=== PATIENT | female | born 1950 | race Caucasian/White ===

== ENCOUNTER 2020-08-29 03:43 | Emergency (ER) | payer MEDICARE, MEDICAID, SELFPAY ==
--- NOTE | ~2020-08-29 | XR_ITS ---
EXAMINATION: XR chest 1V portable DATE: 08/29/2020 04:15 INDICATION: Shortness of breath. TECHNIQUE: A single frontal view of the chest was obtained. COMPARISON: Chest 2 views 06/30/2018 FINDINGS: The chest demonstrates clear lungs without pneumonia, pleural effusion, or pneumothorax. Th e heart size is normal. IMPRESSION: 1. No acute cardiopulmonary disease. Reviewed, dictated and finalized at location A.
[2020-08-29 03:42] VITALS: BP 153/81; PULSE 111; RESP 26; TEMP 36.5; O2SAT 95
--- NOTE | 2020-08-29 03:46 | ECG_ITS ---
Measurements Intervals Welches Rate: 108 P: 54 WA: 165 QRS: -17 QRSD: 93 T: 66 QT: 330 QTc: 444 Interpretive Statements SINUS TACHYCARDIA VENTRICULAR PREMATURE COMPLEX INCOMPLETE RIGHT BUNDLE BRANCH BLOCK BASELINE ARTIFACT- I, II, III, AVR, AVL, AVF, V1-V6 ABNORMAL ECG Electronically Signed On 09-01-2020 15:43:09 CDT by Nguyễn Villar D.O.
[2020-08-29 04:19] LABS: Basophils Percent Auto 0.2 % (0.2-1.2); Eosinophils Percent Auto 0.1 % (0-4.4); Hemoglobin 12.8 g/dL (12.0-15.0); Immature Granulocyte Absolute 0.04 K/mm3 (0.00-0.031); Immature Granulocyte Percent A 0.3 % (0-0.5); Lymphocytes Absolute Auto 0.54 K/mm3 (0.9-3.2); Lymphocytes Percent Auto 4.7 % (18.3-44.2); Mean Corpuscular HGB Conc 33.7 g/dl (32-36); Mean Corpuscular Hemoglobin 29.9 pg (26-34); Mean Corpuscular Volume 88.8 fl (80-100); Mean Platelet Volume 10.9 fl (7.4-10.4); Monocytes Absolute Auto 0.7 K/mm3 (0.1-0.6); Monocytes Percent Auto 6.2 % (2.6-8.5); Neutrophils Absolute Auto 10.3 K/mm3 (1.3-6.7); Neutrophils Percent Auto 88.5 % (45.5-73.1); Platelet Count Result 242 k/mm3 (150-375); Red Blood Count 4.28 M/mm3 (4.2-5.4); Red Cell Distribution Width 12.5 % (11.5-14.5); White Blood Count 11.6 K/mm3 (4.5-10.0)
[2020-08-29 04:28] LABS: Anion Gap 7 mmol/L (8-16); Blood Urea Nitrogen 22 mg/dL (7-17); Calcium 9.4 mg/dL (8.4-10.2); Carbon Dioxide 26 mmol/L (22-30); Chloride 109 mmol/L (98-107); Estimated CRCL calculation 67 ml/min; Estimated Glomerular Filt Rate > 60; Glucose 112 mg/dL (65-105); Potassium 3.5 mmol/L (3.4-5.0); Sodium 142 mmol/L (137-145)
--- NOTE | 2020-08-29 04:30 | ED.GENADULT ---
HPI - General Adult General Chief complaint: Extremity Problem,Nontraumatic Stated complaint: bilateral leg swelling History of Present Illness HPI narrative: Patient is a 69-year-old female who presents ER with weakness and increased difficulty with transfers. Patient is wheelchair-bound due to her MS. Patient has massive lower extremity edema that she reports is worsening. Patient reports that she has been prescribed Lasix in the past but does not take it due to concern that it may injure her kidneys. She is not having chest pain or chest pressure. Denies shortness of breath this time. Has no runny nose/sore throat/productive cough. She also does not like to take Lasix due to chronic incontinence issues and the fact that she will urinate herself. Related Data Home Medications Medication Instructions Recorded Confirmed aspirin [Adult Aspirin] 81 mg PO DAILY 08/29/20 atorvastatin 20 mg PO DAILY 08/29/20 baclofen 10 mg PO BID 08/29/20 docusate sodium 100 mg PO BID 08/29/20 duloxetine 20 mg PO DAILY 08/29/20 duloxetine 60 mg PO DAILY 08/29/20 furosemide 20 mg PO DAILY 08/29/20 hydrochlorothiazide 25 mg PO DAILY 08/29/20 hydroxyzine HCl 25 mg PO TID PRN 08/29/20 lisinopril 10 mg PO DAILY 08/29/20 mirabegron [Myrbetriq] 50 mg PO DAILY 08/29/20 solifenacin [Vesicare] 5 mg PO DAILY 08/29/20 Allergies Allergy/AdvReac Type Severity Reaction Status Date / Time No Known Drug Allergies Allergy Unknown Unverified 05/13/19 08:03 Review of Systems Review of Systems: All systems reviewed & are unremarkable except as noted in HPI and below Constitutional: Constitutional: Denies chills, Denies fever(s) and Denies weakness ENT: Denies nasal congestion and Denies sore throat Cardiovascular: Cardiovascular: Denies chest pain, Denies rapid heart rate and Denies radiating jaw, neck or arm pain Respiratory: Respiratory: Denies cough and Denies dyspnea Musculoskeletal: Musculoskeletal: Denies joint swelling and Denies muscle cramps Comments: Lower extremity edema PMFSH Past Medical History Medical History (Updated 08/29/20 @ 05:41 by Javi Paulino MD) Depression History of seizures Hypertension Lymphedema Multiple sclerosis Pancreatitis Surgical History Surgical History (Updated 08/29/20 @ 04:33 by Javi Paulino MD) History of cholecystectomy Family History Family History (Updated 11/26/13 @ 07:13 by DOCTOR UNKNOWN) Sibling Cerebrovascular accident Social History Social History (Updated 08/29/20 @ 04:33 by Javi Paulino MD) Social History: History of tobacco abuse Alcohol intake: never Exam Narrative: Exam Narrative: GENERAL: Well-appearing, well-nourished, and in no acute distress. HEAD: Normocephalic, atraumatic. CHEST: Clear to auscultation. No respiratory distress. HEART: Tachycardic and regular. Normal radial pulses.. ABDOMEN: Soft, nontender, nondistended. EXTREMITIES: Normal range of motion. 4+ edema of lower extremities. SKIN: Warm, dry, no rash. Chronic venous stasis changes in lower extremities. NEURO: Alert and oriented x3. PSYCH: Normal mood and affect. Course Course Emergency Course: Encourage patient to start her home Lasix and we will provide her with some potassium supplementation. Also discussed that she could be referred to [facility] for lymphedema wraps. Unlikely were edema related improve due to her lack of mobility. Patient may be trending towards prison placement if she cannot perform transfers later on down the road. Vital Signs Vital signs: Vital Signs Temperature 97.7 F 08/29/20 03:42 Pulse Rate 111 H 08/29/20 03:42 Respiratory Rate 26 H 08/29/20 03:42 Blood Pressure 153/81 H 08/29/20 03:42 Pulse Oximetry 95 08/29/20 03:42 Temperature 97.7 F 08/29/20 03:42 Pulse Rate 111 H 08/29/20 03:42 Respiratory Rate 26 H 08/29/20 03:42 Blood Pressure 153/81 H 08/29/20 03:42 Pulse Oximetry 95 08/29/20 03:42
[2020-08-29 04:37] LABS: NT Pro B Type Natriuretic Pept 168 pg/mL (5-100)
[2020-08-29 06:00] VITALS: BP 149/76; PULSE 102; RESP 23; O2SAT 95
--- NOTE | 2020-08-29 06:20 | PC.NURSE ---
Daughter at bedside-says that her is coming to machine pecan picker patient and return her to [facility]. Patient reports that she has had a wet pull up on for awhile - when questioned why she never used call kerr to be changed she stated I'd just be wet again in a short amount of time even if you changed me . Patient ready to be changed now because she is to be discharged home
== END 2020-08-29 07:00 | disposition home or self-care (01) ==
PROVIDERS: Emergency Provider Emergency Medicine; PCP Nurse Practitioner Family
DX: R60.0 Localized edema (principal); G35 Multiple sclerosis; Z99.3 Dependence on wheelchair; Z79.82 Long term (current) use of aspirin; I10 Essential (primary) hypertension; F32.9 Major depressive disorder, single episode, unspecified; I89.0 Lymphedema, not elsewhere classified; Z87.891 Personal history of nicotine dependence; Z91.14 Patient's other noncompliance with medication regimen
CPT/HCPCS: 36415; 71045; 80048; 83880; 85025; 93005; 99283

== ENCOUNTER 2020-09-13 09:17 | Outpatient (CLI) | payer MEDICARE, MEDICAID, SELFPAY ==
[2020-09-13 09:50] LABS: Basophils Absolute Auto 0.1 K/mm3 (0.0-0.1); Basophils Percent Auto 0.9 % (0.2-1.2); Eosinophils Absolute Auto 0.1 K/mm3 (0-0.3); Eosinophils Percent Auto 1.7 % (0-4.4); Hematocrit 42.5 % (37.0-47.0); Hemoglobin 13.8 g/dL (12.0-15.0); Immature Granulocyte Absolute 0.02 K/mm3 (0.00-0.031); Immature Granulocyte Percent A 0.4 % (0-0.5); Lymphocytes Percent Auto 20.6 % (18.3-44.2); Mean Corpuscular HGB Conc 32.5 g/dl (32-36); Mean Corpuscular Hemoglobin 29.7 pg (26-34); Mean Corpuscular Volume 91.4 fl (80-100); Mean Platelet Volume 11.4 fl (7.4-10.4); Monocytes Absolute Auto 0.4 K/mm3 (0.1-0.6); Monocytes Percent Auto 6.9 % (2.6-8.5); Neutrophils Absolute Auto 3.7 K/mm3 (1.3-6.7); Neutrophils Percent Auto 69.5 % (45.5-73.1); Platelet Count Result 263 k/mm3 (150-375); Red Blood Count 4.65 M/mm3 (4.2-5.4); Red Cell Distribution Width 12.6 % (11.5-14.5); White Blood Count 5.3 K/mm3 (4.5-10.0)
[2020-09-13 10:01] LABS: Alanine Aminotransferase 14 U/L (4-35); Albumin Level 4.6 g/dL (3.5-5.1); Alkaline Phosphatase 99 U/L (38-126); Anion Gap 8 mmol/L (8-16); Aspartate Amino Transferase 21 U/L (14-36); Bilirubin,Total 0.7 mg/dL (0.2-1.3); Blood Urea Nitrogen 35 mg/dL (7-17); Carbon Dioxide 35 mmol/L (22-30); Chloride 101 mmol/L (98-107); Estimated Glomerular Filt Rate 49; Glucose 105 mg/dL (65-105); Potassium 3.8 mmol/L (3.4-5.0); Sodium 144 mmol/L (137-145)
== END 2020-09-13 09:18 | disposition home or self-care (01) ==
PROVIDERS: PCP Nurse Practitioner Family; Visit Provider Nurse Practitioner Family
DX: R60.9 Edema, unspecified (principal); Z51.81 Encounter for therapeutic drug level monitoring; Z79.899 Other long term (current) drug therapy
CPT/HCPCS: 36415; 80053; 85025

== ENCOUNTER 2020-11-17 11:57 | Outpatient (CLI) | payer MEDICARE, MEDICAID, SELFPAY ==
[2020-11-17 12:41] LABS: Hematocrit 40.1 % (37.0-47.0); Hemoglobin 12.7 g/dL (12.0-15.0); Mean Corpuscular HGB Conc 31.7 g/dl (32-36); Mean Corpuscular Hemoglobin 29.3 pg (26-34); Mean Corpuscular Volume 92.4 fl (80-100); Mean Platelet Volume 10.8 fl (7.4-10.4); Platelet Count Result 240 k/mm3 (150-375); Red Blood Count 4.34 M/mm3 (4.2-5.4); Red Cell Distribution Width 13.6 % (11.5-14.5); White Blood Count 5.3 K/mm3 (4.5-10.0)
[2020-11-17 13:00] LABS: Albumin Level 4.2 g/dL (3.5-5.1); Anion Gap 5 mmol/L (8-16); Blood Urea Nitrogen 17 mg/dL (7-17); Calcium 8.7 mg/dL (8.4-10.2); Carbon Dioxide 30 mmol/L (22-30); Chloride 105 mmol/L (98-107); Estimated Glomerular Filt Rate > 60; Glucose 93 mg/dL (65-110); Phosphorus 2.9 mg/dL (2.5-4.5); Potassium 3.5 mmol/L (3.4-5.0); Sodium 140 mmol/L (137-145)
[2020-11-17 13:07] LABS: Complement C3 108 mg/dL (88-165)
[2020-11-17 13:49] LABS: Erythrocyte Sedimentation Rate 46 mm/hr (0-20)
[2020-11-20 06:12] LABS: Kappa\\Lambda Light Chains 1.56 (0.26-1.65); Lambda Light Chain 20.3 mg/L (5.7-26.3)
[2020-11-23 14:31] LABS: Complement Total CH50 >60 U/mL (31-60)
== END 2020-11-17 11:58 | disposition home or self-care (01) ==
PROVIDERS: PCP Nurse Practitioner Family; Visit Provider Internal Medicine Nephrology
DX: R94.4 Abnormal results of kidney function studies (principal)
CPT/HCPCS: 36415; 80069; 83883; 85027; 85652; 86038; 86039; 86160; 86162; 86334

== ENCOUNTER 2020-11-23 12:33 | Outpatient (NON) | payer MEDICARE, MEDICAID, SELFPAY ==
[2020-11-23 13:12] LABS: Add Urine Microscopic? YES; Appearance Urine Cloudy (Clear); Bilirubin Urine Negative (Negative); Blood Urine Negative (Negative); Color Urine Yellow (Yellow); Glucose Urine UA Negative (Negative); Ketones Urine Negative (Negative); Leukocyte Esterase Ur 1+ LEU/UL (NEGATIVE); Nitrate Urine Negative (Negative); Protein Urine Negative (Negative); RBC Urine 0-2 /hpf (0-2); Specific Grav Ur 1.018 (1.001-1.035); WBC Urine 0-3 /hpf (0-3)
[2020-11-23 13:32] LABS: Creatinine Urine 122.8 mg/dL; Total Protein Urine Random 9 mg/dL; Ur Ttl Prot Creatinine Ratio 0.07 mg/mg (0-0.20)
[2020-11-23 13:36] LABS: Sodium Urine Random 144 meq/L
== END 2020-11-23 12:34 | disposition home or self-care (01) ==
LOC: ANHLAB 12:34
PROVIDERS: PCP Nurse Practitioner Family; Visit Provider Internal Medicine Nephrology
DX: R94.4 Abnormal results of kidney function studies (principal)
CPT/HCPCS: 81001; 82570; 84156; 84300; 86335

== ENCOUNTER 2020-12-06 10:30 | Outpatient (CLI) | payer MEDICARE, MEDICAID, SELFPAY ==
--- NOTE | ~2020-12-06 | US_ITS ---
EXAMINATION: US renal BI EXAM DATE: 12/06/2020 11:06 INDICATION: nonspecific abn results of function study of kidney TECHNIQUE: Multiple grayscale and Doppler images of the kidneys were obtained (by a technologist who performed the scan) and subsequently reviewed. There is no prior study for comparison. FINDINGS: Right kidney: There is normal contour and echogenicity. It measures 10.5 x 4.6 x 5.0 centimeters. T here are no focal renal lesions identified. There is no hydronephrosis. Left kidney: There is normal contour and echogenicity. It measures 9.9 x 5.4 x 4.7 centimeters. The re are no focal renal lesions identified. There is no hydronephrosis. Bladder unremarkable. IMPRESSION: 1. Sonographically unremarkable kidneys. Reviewed, dictated and finalized at location A.
== END 2020-12-06 10:31 | disposition home or self-care (01) ==
PROVIDERS: PCP Nurse Practitioner Family; Visit Provider Internal Medicine Nephrology
DX: R94.4 Abnormal results of kidney function studies (principal)
CPT/HCPCS: 76775

== ENCOUNTER 2021-01-03 08:57 | Outpatient (CLI) | payer MEDICARE, MEDICAID, SELFPAY ==
[2021-01-03 09:55] LABS: Rheumatoid Factor < 8.6 IU/ML (<12)
[2021-01-05 22:22] LABS: ANCA Screen Negative (Negative)
[2021-01-06 23:04] LABS: SM Antibody <1.0; SM/RNP Antibody <1.0
[2021-01-08 20:55] LABS: Anti Glomerular Basement Memb <1.0 AI (<1.0)
[2021-01-10 12:25] LABS: Cryoglobulin, QL Negative (Negative)
[2021-02-15 13:19] LABS: SS-A <1.0
[2021-02-15 13:20] LABS: SS-B <1.0
== END 2021-01-03 08:58 | disposition home or self-care (01) ==
PROVIDERS: PCP Nurse Practitioner Family; Visit Provider Internal Medicine Nephrology
DX: R94.4 Abnormal results of kidney function studies (principal); R76.0 Raised antibody titer
CPT/HCPCS: 36415; 82595; 83520; 86021; 86038; 86039; 86225; 86235; 86430

== ENCOUNTER 2021-04-04 14:32 | Outpatient (CLI) | payer MEDICARE, MEDICAID, SELFPAY ==
--- NOTE | ~2021-04-04 | CT_ITS ---
EXAMINATION: CT lung screening DATE: 04/04/2021 15:05 INDICATION: NICOTINE DEPENDENCE TECHNIQUE: Computed tomography (CT) of the chest was performed without intravenous contrast. Addition al 3D reconstructions utilizing coronal maximum intensity projection (MIP) were performed. Automated exposure control and iterative reconstruction technique were employed. The dose-length product was 18 6.80 mGy-cm. COMPARISON: None FINDINGS: Mild biapical pleural-parenchymal scarring. Mild linear discoid atelectasis/scarring at the bilateral lung bases. Several scattered 3 mm or smaller nodules at the left lower and bilateral upper lobes. T he larger pulmonary nodules, pulmonary edema or pleural effusion. Heart size is normal. Atherosclerot ic coronary artery calcific lesion. No pericardial effusion. Thoracic aorta is normal in caliber. No pathologically enlarged thoracic lymphadenopathy. Chronic compression fractures with mild anterior we dging at T6-T8 and chronic mild superior endplate compression fractures at T10 and L1. IMPRESSION: 1. Lung-RADS category 2: Benign appearance or behavior. Continue annual screening with noncontrast lo w-dose chest CT in 12 months. Reviewed, dictated and finalized at location B. EN PRINTER HELPER IMPRESSION: 1. Lung-RADS category 2: Benign appearance or behavior. Continue annual screeni ng with noncontrast low-dose chest CT in 12 months.
== END 2021-04-04 14:33 | disposition home or self-care (01) ==
LOC: ANHIMG 14:36
PROVIDERS: PCP Nurse Practitioner Family; Visit Provider Nurse Practitioner Family
DX: Z12.2 Encounter for screening for malignant neoplasm of respiratory organs (principal); F17.210 Nicotine dependence, cigarettes, uncomplicated
CPT/HCPCS: 71271

== ENCOUNTER 2021-05-16 12:05 | Outpatient (CLI) | payer OTHER, SELFPAY ==
--- NOTE | ~2021-05-16 | XR_ITS ---
XR knee RT 2V DATE: 05/16/2021 13:44 INDICATION: Acute onset of right knee pain TECHNIQUE: AP and crosstable lateral views COMPARISON: None FINDINGS: Diffuse osteopenia. No fracture or dislocation, periosteal reaction or bone destruction or significant joint space narrowing, radiopaque intra-articular loose body or chondrocalcinosis. IMPRESSION: Osteopenia Reviewed, dictated and finalized at location B. ST SUPERVISOR IMPRESSION: Osteopenia
[2021-05-16 14:08] LABS: CRP < 0.5 mg/dL (<1.0); Creatine Kinase 44 U/L (30-135); Magnesium 2.3 mg/dL (1.6-2.3); Uric Acid 9.5 mg/dL (2.5-7.5)
[2021-05-16 14:30] LABS: Erythrocyte Sedimentation Rate 35 mm/hr (0-20)
[2021-05-16 14:36] LABS: Thyroid Stimulating Hormone 0.678 uIU/mL (0.465-4.680)
[2021-05-16 14:45] LABS: Free T4 Free Thyroxine 1.25 ng/mL (0.78-2.19); Vitamin D 25 Hydroxy 27.6 ng/mL
[2021-05-16 15:00] LABS: Hepatitis B Surface Antigen Negative (Negative)
[2021-05-16 15:02] LABS: Hepatitis B Core IgM Result Negative (Negative)
[2021-05-16 15:15] LABS: Folic Acid 13.1 ng/mL (2.76->20); Hepatitis B Surface Anti Res Negative; Hepatitis C Virus Antibody Negative (Negative)
[2021-05-16 19:53] LABS: Hemoglobin A1C 5.3 % (<5.7)
[2021-05-18 14:38] LABS: NIL 0.01 IU/mL; Quantiferon TB Plus, 1T NEGATIVE (NEGATIVE)
[2021-05-18 14:39] LABS: Rheumatoid Factor < 8.6 IU/ML (<12)
[2021-05-18 15:26] LABS: Hepatitis C RNA, Quant PCR <15 IU/mL
[2021-05-18 17:00] LABS: Albumin 4.1 g/dL (3.8-4.8); Alpha 1 Globulin 0.4 g/dL (0.2-0.3); Alpha 2 Globulin 0.9 g/dL (0.5-0.9); Beta 1 Globulin 0.5 g/dL (0.4-0.6); Gamma Globulin 1.2 g/dL (0.8-1.7); Protein, Total 7.4 g/dL (6.1-8.1)
[2021-05-18 18:10] LABS: Hepatitis B DNA PCR <1.00 Log IU/mL; Hepatitis B DNA PCR <10 IU/mL
[2021-05-19 10:09] LABS: Vitamin B1 11 nmol/L (8-30)
[2021-05-21 10:55] LABS: Vitamin B6 <2.0 ng/mL (2.1-21.7)
== END 2021-05-16 12:06 | disposition home or self-care (01) ==
PROVIDERS: PCP Nurse Practitioner Family; Visit Provider Internal Medicine Rheumatology
DX: M85.861 Other specified disorders of bone density and structure, right lower leg (principal); E55.9 Vitamin D deficiency, unspecified; G62.9 Polyneuropathy, unspecified; R73.09 Other abnormal glucose; E53.8 Deficiency of other specified B group vitamins; M79.10 Myalgia, unspecified site
CPT/HCPCS: 36415; 73560; 82306; 82550; 82607; 82746; 83036; 83520; 83735; 84155; 84165; 84207; 84425; 84439; 84443; 84550; 85652; 86038; 86039; 86140; 86334; 86430; 86480; 86705; 86706; 86803; 87340; 87517; 87522

== ENCOUNTER 2021-07-07 12:30 | Outpatient (RCR) | payer MEDICARE, OTHER, MEDICAID, SELFPAY ==
--- NOTE | 2021-05-02 11:25 | PTOPEVAL ---
PHYSICAL THERAPY EVALUATION AND PLAN OF CARE 05-02-21 Thank you for referring Chelsea Fulton to [facility] for the diagnosis of B LE lymphedema. After the evaluation, treatment was discussed with Mrs. Fulton and recommended 3x/wk. She was upset that we could not compete her treatment once/week. She has issues with transportation at this time and only wants once/week. Education was provided to her about lymphedema, skin care and plans for therapy. She is going to discuss with her children, her dr and consider her options. And will call for any questions and if she wants to make an appointment to start treatment. PT treatment is recommended 2-3 x/week for 6 weeks. Please review, sign, date and return this plan of care GUSTAVO. I agree with and certify that the following plan of care is medically necessary. Referring Physician Date Attending Provider: Baltazar Harden MD Document 05/02/21 10:00 MASON (Rec: 05/02/21 11:25 MASON [id number]) Past Medical History Source of Past Medical History Patient Neurological History Hx Seizures Yes Hx Other Neurological Disorders Yes: has MS Cardiovascular History Hx Hypercholesterolemia Yes: meds Hx Hypertension Yes: meds Hx Other Cardiac Disorders Yes: Chronic edema of legs Respiratory History Hx Respiratory Disorders No Significant History Gastrointestinal History Hx Cholecystectomy Yes Genitourinary History Hx Other Genitourinary Disorders Yes: Incontinence Musculoskeletal History Hx Other Musculoskeletal Disorders Yes: multiple sclerosis Endocrine History Hx Endocrine Disorders No Significant History HEENT History Hx Other HEENT Disorders Yes: wear glasses Psychosocial History Hx Depression Yes Evaluation Information Problem Diagnosis lymphedema of LE's Onset few years ago Prior Level of Function Activity Level (Last 3 Months) Activity of Daily Living Ability Needs Some Help Community Mobility Needs Some Help Stairs Ability Not-Applicable Functional Cognition (Planning, Shopping Needs Some Help , Taking Medications) Cooking No Cleaning No Laundry No Shopping No Driving No Home Setting Home Type Assisted Living Facility Mobility Assistive Devices (Used Last 3 Walker, Wheeled,Wheelchair, Months) Scooter Comments Additional Prior Level of Function can walk with wheeled walker ~ Comments 16 steps, use motorized scooter; have SBA for safety with showering; is indep with bathing; requires assist with dressing with socks and pants; assist varies depend upon good or bad day with MS
--- NOTE | 2021-05-05 14:10 | PCPTNOTE ---
pt's daughter, Arline Serrano called [phone]; I returned her call and discussed plan of care and treatment options for her mom's lymphedema. She expressed concern about not showering due to her incontinence and requirements of the assisted living facility to shower 3x/wk; also concerns with transportation, completing application for [employer] bus. Discussed w/c needing elevating leg rests and prop legs up during day. She voiced understanding and is working on getting her mom in for treatment with the compression wraps.
--- NOTE | 2021-06-14 15:45 | PTOPEVAL ---
PHYSICAL THERAPY REEVALUATION AND UPDATED PLAN OF CARE 3-16-2-2 Refer to clinical summary below. Continue PT treatment 3x/wk for 5 weeks. Thank you for referring Chelsea Fulton to [facility].? Please review, sign, date and return this updated plan of care [facility]. I agree with and certify that the following plan of care is medically necessary. Referring Physician Date Attending Provider: Baltazar Harden MD Subjective Information Chelsea reports: is now Query Text:As Reported By Patient/ able to get a ride set up with Family the bus and wants to get therapy for her legs; is in the wheel chair all day long and only going to bed at night ; using Hoverround chair, her other wheelchair that has elevating legs is broken- arm rest fell off, and company will not fix it under warranty , so she is not getting it fixed; Pain Assessment Timing of Pain Assessment Timing of Pain Assessment Assessment Pain Scale Pain Scale Used Numeric (1 - 10) Self Report Pain Assessment Bilateral Leg(s) Reported Pain Level 3 Pain Description Tightness Pain Frequency Chronic,Continuous Pain Score Pain Score 3: Self Report Interventions Used Interventions Used By Clinicians Education Transfer Assessment Chair Transfer Assessment Chair Transfer Destination w/c<>mat Ability to Transfer In/Out of Chair Moderate Assistance X 1 Chair Transfer Technique Stand Pivot Cues Needed for Chair Transfer Tactile,Verbal Chair Transfer Comments Hoverround motorized chair with feet on platform Bed Mobility Assessment Bed Mobility Bed Type Mat Supine to Sit Ability Maximum Assistance X 1 Sit to Supine Ability Maximum Assistance X 1 Cues Needed for Bed Mobility Verbal Bed Mobility Comments with sit to supine: requires total assist with LE's; she is able to move trunk; with supine to sit: required assist with trunk--pulling up on PT's hand to raise trunk and total assist with LE's Skin Inspection Location Left Lower Extremity,Right Lower Extremity Skin Observations Absence of Leg Hair,Dorsum Foot Swelling,Hyperkeratosis, Hyperpigmentation,Hyperplasia, Papillomas Palpation Findings
--- NOTE | 2021-06-19 09:42 | PCPTNOTE ---
pt called and canceled due to not having transportation for today's appt;
--- NOTE | 2021-06-26 12:43 | PCPTNOTE ---
pt called and canceled today's appt due to transportation issues;
--- NOTE | 2021-07-07 13:35 | PTOPEVAL ---
PHYSICAL THERAPY DISCHARGE 07-07-21 Refer to the clinical summary below for her status today, compared to the initial evaluation. The goals were partially achieved; circumferential measurements, obtaining compression garments and education goals complete; improved with skin integrity but still has some redness and dry, flaking skin. She still requires assist with transfers and bed mobility. Thank you for referring Chelsea Fulton to [facility].? Please review, sign, date and return this Discharge report GUSTAVO. I agree with and certify that the following plan of care is medically necessary. Referring Physician Date Attending Provider: Baltazar Harden MD Subjective Information Chelsea reports: legs are Query Text:As Reported By Patient/ alot smaller size and not Family tight anymore; socks are comfortable; going to start regular PT treatment for strength legs and loosen the muscles; her helpers are putting stockings on without any problems; feels like she is ready for discharge; Pain Assessment Self Report Self Report Pain Level 0 Pain Score Pain Score 0: Self Report Skin Inspection Comment R LE: lower leg: redness over toes and dorsum of foot, up leg from bottom of foot to 32 cm with dry, flaking skin, medial aspect of leg and lateral malleoli with thicker brownish skin; knee and upper thigh with good skin color; minimal thickness and fibrotic tissue over posterior-distal thigh where w /c hits her thigh; L LE: minimal redness over toes and dorsum of foot and slight red over lateral lower leg; dry flaking skin is thoughout but areas without flaking; knee and thigh with good skin color and without fibrosis except minimal over posterior-distal thigh, where w/c hits leg pt to dept without any compression on legs, stated they were removed at bedtime last night and did not put on this AM due to a shower about 10:00 and the
== END 2021-07-10 12:19 | disposition home or self-care (01) ==
LOC: ANHPT 12:30
PROVIDERS: PCP Nurse Practitioner Family; Referring Provider Surgery Vascular Surgery; Visit Provider Surgery Vascular Surgery
DX: I89.0 Lymphedema, not elsewhere classified (principal)
CPT/HCPCS: 29581; 97140; 97162

== ENCOUNTER 2021-08-15 11:44 | Outpatient (CLI) | payer MEDICARE, MEDICAID, SELFPAY ==
--- NOTE | ~2021-08-15 | US_ITS ---
EXAMINATION: US retroperitoneal comp DATE: 08/15/2021 12:44 INDICATION: Stage 3A chronic kidney disease TECHNIQUE: Multiple ultrasound grayscale images of the kidneys were obtained. COMPARISON: None. FINDINGS: The right kidney measures 10.8 x 4.2 x 3.9 cm. The left kidney measures 8.4 x 4.7 x 6.2 cm. The kidne ys demonstrate normal echogenicity. There is no hydronephrosis in either kidney. No stones identifie d. The bladder is normal with bilateral ureteral jets visible on color Doppler. IMPRESSION: 1. Normal kidneys without hydronephrosis. Reviewed, dictated and finalized at location A.
--- NOTE | ~2021-08-15 | MR_ITS ---
EXAMINATION: MR cervical spine wo con DATE: 08/15/2021 14:06 INDICATION: Multiple sclerosis. TECHNIQUE: Magnetic resonance imaging (MRI) of the cervical spine was performed without intravenous c ontrast. Sequences included sagittal T2-weighted FSE, sagittal T2-weighted FS FSE, sagittal T1-weight ed FSE, axial MERGE, and axial T2-weighted FSE. COMPARISON: None FINDINGS: Bone alignment is normal. Vertebral body heights are normal. There is moderately decreased disc height at C5-C6 and mildly decreased disc height at C6-C7 with endplate remodeling. There are mu ltiple lesions of increased T2-weighted signal intensity in the cervical spinal cord. The following d isc levels are specifically discussed: C2-C3: The disc does not extend beyond the endplate margin. There is ankylosis of right uncovertebral joint without hypertrophy. There is ankylosis of left facet joint with mild hypertrophy. There is no neural foraminal stenosis. There is no central canal stenosis. C3-C4: There is a central protrusion. There is mild right and moderate left uncovertebral joint osteo arthritis. There is mild right and severe left facet joint osteoarthritis. There is mild right and mo derate left neural foraminal stenosis. There is mild central canal stenosis. C4-C5: The disc is bulging. There is mild bilateral uncovertebral joint osteoarthritis. There is abdirahman re bilateral facet joint osteoarthritis. There is mild bilateral neural foraminal stenosis. There is mild central canal stenosis. C5-C6: The disc is bulging. There is severe bilateral uncovertebral joint osteoarthritis. There is mi ld bilateral facet joint osteoarthritis. There is moderate bilateral neural foraminal stenosis. There is mild central canal stenosis with ventral indentation of the spinal cord. C6-C7: The disc is bulging. There is moderate bilateral uncovertebral joint osteoarthritis. There is severe right and moderate left facet joint osteoarthritis. There is mild right and moderate left neur al foraminal stenosis. There is mild central canal stenosis. C7-T1: There is a central protrusion. There is no uncovertebral joint osteoarthritis. There is severe bilateral facet joint osteoarthritis. There is no neural foraminal stenosis. There is no central can al stenosis. IMPRESSION: 1. Multiple spinal cord lesions, consistent with multiple sclerosis. 2. Moderate cervical spondylosis. Reviewed, dictated and finalized at location B.
--- NOTE | ~2021-08-15 | MR_ITS ---
EXAMINATION: MR brain/brain stem wo con DATE: 08/15/2021 14:06 INDICATION: Multiple sclerosis. TECHNIQUE: Magnetic resonance imaging (MRI) of the brain and brainstem was performed without intraven ous contrast. COMPARISON: None. FINDINGS: There is diffuse brain volume loss. There are scattered areas of increased T2-weighted sign al intensity in the cerebral white matter. There is an extensive confluence of increased T2-weighted signal intensity involving the deep and periventricular cerebral white matter. There are numerous les ions of increased T2-weighted signal intensity involving the subcortical white matter. There are lesi ons of increased T2-weighted signal intensity in the left posterior karley, right middle cerebellar ped uncle, and right cerebellar white matter. There is no acute ischemic infarct or intracranial hemorrha ge. The ventricles are normal in size. The orbits are normal. The mastoid air cells are normal. The p aranasal sinuses are clear. IMPRESSION: 1. Extensive distribution of white matter disease in the brain, likely a combination multiple scleros is and chronic small vessel ischemic disease. Reviewed, dictated and finalized at location B. IMPRESSION: 1. Extensive distribution of white matter disease in the brain, likely a combin ation multiple sclerosis and chronic small vessel ischemic disease.
--- NOTE | ~2021-08-15 | MR_ITS ---
EXAMINATION: MR lumbar spine wo con DATE: 08/15/2021 14:06 INDICATION: Multiple sclerosis. TECHNIQUE: Magnetic resonance imaging (MRI) of the lumbar spine was performed without intravenous con trast. Sequences included sagittal T2-weighted FSE, sagittal T2-weighted FS FSE, sagittal T1-weighted FSE, and axial T2-weighted FSE. COMPARISON: None FINDINGS: There is 9 degrees levocurvature of lumbar spine. L5 is a transitional segment. There is a chronic compression fracture of L1 with 1/5 loss of height. There is 3 mm anterolisthesis of L3 on L4 . There is mildly decreased disc height at L3-L4. The conus medullaris is at T12-L1. The following di sc levels are specifically discussed: L1-L2: The disc does not extend beyond the endplate margin. There is moderate right and mild left fac et joint osteoarthritis. There is no neural foraminal stenosis. There is no central canal stenosis. L2-L3: The disc is mildly bulging. There is mild bilateral facet joint osteoarthritis. There is mild bilateral neural foraminal stenosis. There is no central canal stenosis. L3-L4: The disc is mildly bulging as an annular fissure. There is severe bilateral facet joint osteoa rthritis. There is mild bilateral neural foraminal stenosis. There is no central canal stenosis. L4-L5: The disc is mildly bulging with annular fissure. There is severe bilateral facet joint osteoar thritis. There is mild left neural foraminal stenosis. There is no central canal stenosis. L5-S1: The disc does not extend beyond the endplate margin. There is no facet joint osteoarthritis. T here is no neural foraminal stenosis. There is no central canal stenosis. IMPRESSION: 1. Mild lumbar spondylosis. Reviewed, dictated and finalized at location B. IMPRESSION: 1. Mild lumbar spondylosis.
--- NOTE | ~2021-08-15 | MR_ITS ---
EXAMINATION: MR thoracic spine wo con DATE: 08/15/2021 14:06 INDICATION: Multiple sclerosis. TECHNIQUE: Magnetic resonance imaging (MRI) of the thoracic spine was performed without intravenous c ontrast. Sagittal localizer T1-weighted FSE of the cervical spine was obtained. Thoracic spine sequen yadira included sagittal T2-weighted FSE, sagittal T1-weighted FSE, sagittal STIR FSE, and axial T2-weig hted FSE. COMPARISON: None FINDINGS: There is 9 degrees levocurvature of thoracic spine. There is kyphosis of thoracic spine. Th ere is mild chronic anterior wedging of T5-T8 vertebral bodies. There is mildly decreased disc height at multiple levels. There is moderately decreased disc height at T6-T7, severely decreased disc heig ht at T7-T8, and moderately decreased disc height at T8-T9 and T9-T10. At T9-T10, there is a right mcgowan barticular zone protrusion with mild central canal stenosis. There is multilevel facet joint osteoart hritis, severe at a few levels. On the right, there is mild neural foraminal stenosis at T4-T5. There are lesions of increased T2-weighted signal intensity in the spinal cord at T1, T2, T8-T9, and T10-T 11. IMPRESSION: 1. Spinal cord lesions, consistent with multiple sclerosis. 2. Moderate thoracic spondylosis. Reviewed, dictated and finalized at location B.
== END 2021-08-15 11:45 | disposition home or self-care (01) ==
PROVIDERS: PCP Nurse Practitioner Family; Visit Provider Internal Medicine Rheumatology
DX: N18.31 Chronic kidney disease, stage 3a (principal); G35 Multiple sclerosis; M47.814 Spondylosis without myelopathy or radiculopathy, thoracic region; M48.061 Spinal stenosis, lumbar region without neurogenic claudication; M47.813 Spondylosis without myelopathy or radiculopathy, cervicothoracic region; M48.03 Spinal stenosis, cervicothoracic region
CPT/HCPCS: 70551; 72141; 72146; 72148; 76770